=== PATIENT | female | born 1955 | race Caucasian/White ===

== ENCOUNTER → 2016-08-06 | Outpatient (CLI) | payer OTHER ==
[~2016-08-06] MED LIST: DOXYCYCLINE HYC50 MG PO; ENALAPRIL MALEAT5 M1 PO; FISH OIL + VIT1 EACH PO; GLUCOPHAGE500 MG PO; GLUCOTROL10 MG PO; IBUPROFEN 800800 M1 PO; KEPPRA750 MG PO; LEVOTHYROXINE0.05 MG PO; OMEPRAZOLE40 MG PO; PRAVASTATIN SOD20 MG PO; SERTRALINE HCL50 MG PO
== END ==
LOC: NUC 02:54 → RAD 02:54
DX: M85.80 Other specified disorders of bone density and structure, unspecified site (principal); R92.0 Mammographic microcalcification found on diagnostic imaging of breast

== ENCOUNTER → 2017-07-22 | Outpatient (CLI) | payer OTHER ==
[~2017-07-22] MED LIST changes: -ENALAPRIL MALEAT5 M1 PO; +ENALAPRIL-HCTZ1 EAC1 PO; +GLIPIZIDE ER10 MG PO; -GLUCOPHAGE500 MG PO; -GLUCOTROL10 MG PO; +GLUCOTROL5 MG PO; +KEPPRA1000 MG PO; +KOMBIGLYZE XR1 EAC2 PO; +PRAVACHOL40 MG PO; +PRAVASTATIN SOD10 MG PO; -PRAVASTATIN SOD20 MG PO; +PRILOSEC 10MG C10 MG PO; +SYNTHROID50 MCG PO; +TRULICITY1.5 MG/0.5 SUBQ; +ZALEPLON 10 MG10 M1 PO
== END ==
LOC: RAD 08:25
DX: Z12.31 Encounter for screening mammogram for malignant neoplasm of breast (principal)

== ENCOUNTER → 2017-09-01 | Outpatient (CLI) | payer OTHER ==
[~2017-09-01] MED LIST changes: +ENALAPRIL MALEAT5 M1 PO; -ENALAPRIL-HCTZ1 EAC1 PO; -GLIPIZIDE ER10 MG PO; +GLUCOPHAGE500 MG PO; +GLUCOTROL10 MG PO; -GLUCOTROL5 MG PO; -KEPPRA1000 MG PO; -KOMBIGLYZE XR1 EAC2 PO; -PRAVACHOL40 MG PO; -PRAVASTATIN SOD10 MG PO; +PRAVASTATIN SOD20 MG PO; -PRILOSEC 10MG C10 MG PO; -SYNTHROID50 MCG PO; -TRULICITY1.5 MG/0.5 SUBQ; -ZALEPLON 10 MG10 M1 PO
== END ==
LOC: MRI 08-13 14:37
DX: M47.896 Other spondylosis, lumbar region (principal); M25.78 Osteophyte, vertebrae; M48.061 Spinal stenosis, lumbar region without neurogenic claudication; M54.40 Lumbago with sciatica, unspecified side

== ENCOUNTER → 2018-07-26 | Outpatient (CLI) | payer OTHER ==
[~2018-07-26] MED LIST changes: -ENALAPRIL MALEAT5 M1 PO; +ENALAPRIL-HCTZ1 EAC1 PO; +GLIPIZIDE ER10 MG PO; -GLUCOPHAGE500 MG PO; -GLUCOTROL10 MG PO; +GLUCOTROL5 MG PO; +KEPPRA1000 MG PO; +KOMBIGLYZE XR1 EAC2 PO; +PRAVACHOL40 MG PO; +PRAVASTATIN SOD10 MG PO; -PRAVASTATIN SOD20 MG PO; +PRILOSEC 10MG C10 MG PO; +SYNTHROID50 MCG PO; +TRULICITY1.5 MG/0.5 SUBQ; +ZALEPLON 10 MG10 M1 PO
== END ==
LOC: BC 11:38
DX: R92.2 Inconclusive mammogram (principal)

== ENCOUNTER → 2021-03-22 | Outpatient (CLI) | payer OTHER | LOC: BC 13:15 | PROVIDERS: ATTEND Family Medicine | DX: Z12.31 Encounter for screening mammogram for malignant neoplasm of breast (principal); N64.89 Other specified disorders of breast ==